=== PATIENT | female | born 1980 | race Two or more races ===

== ENCOUNTER 2023-07-05 12:38 | Outpatient (CLI) | payer OTHER | END 2023-07-05 12:39 | disposition home or self-care (01) | LOC: PRENATAL 12:38 | PROVIDERS: ATTEND Obstetrics & Gynecology Maternal & Fetal Medicine | DX: O35.3XX0 Maternal care for (suspected) damage to fetus from viral disease in mother, not applicable or unspecified (principal); O09.529 Supervision of elderly multigravida, unspecified trimester; O34.219 Maternal care for unspecified type scar from previous cesarean delivery; Z3A.20 20 weeks gestation of pregnancy ==

== ENCOUNTER 2023-11-09 07:45 | Inpatient (IN) | payer OTHER ==
[~2023-11-09] VITALS: Ht 157.5 cm; Wt 3.6 kg
[2023-11-09] MEDS ORDERED: RINGERS SOLUTION,LACTATED 1,000 ML IV SCH ×2 (09:15→14:30)
[2023-11-09 09:18] LABS: PH,URINE 6.5 (5.0-8.0); URINE APPEARANCE Clear; URINE BILIRRUBIN Negative (NEGATIVE); URINE BLOOD Negative; URINE COLOR Yellow; URINE GLUCOSE Negative (NEGATIVE); URINE LEUKOCYTE Negative; URINE NITRATE Negative; URINE PROTEIN Negative (NEGATIVE); URINE UROBILINOGEN 0.2 E.U./dl
[2023-11-09 09:21] LABS: URINE BACTERIA 693.9 uL (0.0-1933); URINE EPITHELIAL CELLS 9.5 uL (0.0-38.8); URINE RBC 5.1 uL (0.0-20.8); URINE WBC 2.1 uL (0.0-23.2)
[2023-11-09 09:24] LABS: HEMATOCRIT 36.2 % (36.0-45.00); HEMOGLOBIN 12.7 g/dL (12.0-15.00); MEAN CELL VOLUME 89.5 fL (80.00-100.00); MEAN CORPUSCULAR HEMOGLOBIN 31.4 pg (27.00-32.0); MEAN CORPUSCULAR HGB CONC 35.1 g/dl (32.0-36.0); PLATELET COUNT 178 K/uL (150-450); RED BLOOD COUNT 4.04 M/uL (4.00-6.00); RED CELL DISTRIBUTION WIDTH 15.1 % (11.5-14.5)
[2023-11-09 09:53] LABS: INR 0.94; PARTIAL THROMBOPLASTIN TIME 26.7 SECONDS (22.0-34.0); PROTHROMBIN TIME 9.9 SECONDS (9.0-11.5)
[2023-11-09 10:00] LABS: ALBUMIN 2.7 gm/dL (3.4-5.0); BILIRUBIN TOTAL 0.57 mg/dL (0.3-1.2); CALCIUM 8.6 mg/dL (8.5-10.1); CREATININE SERUM 0.53 mg/dL (0.55-1.02); GFR 126.51; GLOBULINA 3.3 G/DL (2.4-3.5); POTASSIUM 3.7 mEq/L (3.5-5.1)
[2023-11-09] MEDS ORDERED: ASA81 MG PO (10:08)
[2023-11-09] MEDS ORDERED: PRENATAL 19 TA1 EAC2 PO (10:11)
[2023-11-09] MEDS ORDERED: ERYTHROMYCIN BASE 1 GM TUBE OP ONE ×2 (11:55→14:00)
[2023-11-09] MEDS ORDERED: OXYTOCIN 10 UNITS/ML VIAL ONE ×4 (11:55→17:20)
[2023-11-09] MEDS ORDERED: CEFOXITIN SODIUM 2,000 MG VIAL IV ONE ×2 (13:26→14:00)
[2023-11-09] MEDS ORDERED: OXYTOCIN 40 UNITS in RINGERS SOLUTION,LACTATED 1,000 ML IV ONE (14:00)
[2023-11-09] MEDS ORDERED: MEPERIDINE HCL/PF 50 MG/ML VIAL IV SCH (14:22)
[2023-11-09] MEDS ORDERED: PROMETHAZINE HCL 50 MG/ML AMPUL IM SCH (14:23)
[2023-11-09] MEDS ORDERED: ERYTHROMYCIN BASE 1 GM TUBE OP SCH (14:30)
[2023-11-09] MEDS ORDERED: CHLORHEXIDINE GLUCONATE 120 ML BOTTLE TP SCH (14:30)
[2023-11-09] MEDS ORDERED: OXYTOCIN 1,000 ML IV SCH (14:30)
[2023-11-09] MEDS ORDERED: PROMETHAZINE HCL 50 MG/ML AMPUL IM ONE (16:24)
[2023-11-09 17:21] LABS: HEMATOCRIT 35.4 % (36.0-45.00); HEMOGLOBIN 12.4 g/dL (12.0-15.00); MEAN CELL VOLUME 87.6 fL (80.00-100.00); MEAN CORPUSCULAR HEMOGLOBIN 30.7 pg (27.00-32.0); PLATELET COUNT 147 K/uL (150-450); RED BLOOD COUNT 4.04 M/uL (4.00-6.00); RED CELL DISTRIBUTION WIDTH 15.4 % (11.5-14.5)
[2023-11-09] MEDS ORDERED: SIMETHICONE 125 MG CAPSULE PO SCH (18:00)
[2023-11-10] MEDS ORDERED: NAPROXEN 500 MG TABLET PO SCH (09:02)
[2023-11-10] MEDS ORDERED: ACETAMINOPHEN WITH CODEINE 1 UDTAB TABLET PO PRN (09:15)
[2023-11-11] MEDS ORDERED: DOCUSATE SODIUM 100MG CAP PO STA (18:15)
[2023-11-11] MEDS ORDERED: DOCUSATE SODIUM 100MG CAP PO SCH (18:15)
[2023-11-12] MEDS ORDERED: NAPR500T14 PO (08:09)
[2023-11-12] MEDS ORDERED: Tylenol #3 PO (08:09)
[2023-11-12] MEDS ORDERED: COLACE100 MG PO (08:09)
== END 2023-11-12 10:16 | disposition home or self-care (01) | DRG 785 ==
LOC: OB/GYN 07:45 → LDR 07:45 → O/R 14:58 → OB/GYN 15:56
PROVIDERS: ADMIT Obstetrics & Gynecology; ATTEND Obstetrics & Gynecology
PROC: 0UB70ZZ Excision of Bilateral Fallopian Tubes, Open Approach (ICD-10-PCS; 2023-11-09)
PROC: 4A1HXCZ Monitoring of Products of Conception, Cardiac Rate, External Approach (ICD-10-PCS; 2023-11-09)
PROC: 10D00Z1 Extraction of Products of Conception, Low, Open Approach (ICD-10-PCS; principal; 2023-11-09 12:00)
DX: O34.211 Maternal care for low transverse scar from previous cesarean delivery (principal); Z3A.38 38 weeks gestation of pregnancy; Z37.0 Single live birth; Z30.2 Encounter for sterilization; Z20.822 Contact with and (suspected) exposure to COVID-19